=== PATIENT | female | born 1950 | race Caucasian/White ===

== ENCOUNTER 2016-09-26 11:26 | Emergency (ER) | payer BC, MEDICARE ==
[~2016-09-26] VITALS: Ht 162.6 cm; Wt 60.0 kg
--- NOTE | 2016-09-26 12:01 | PD ---
HPI Chief Complaint: GI Complaint Time Seen by Provider: 12:01 Travel History International Travel<30 days: No Contact w/Intl Traveler<30days: No Traveled to known affect area: No History of Present Illness HPI 66-year-old female with history of hypothyroidism, anxiety, presents to the emergency department for evaluation of 3 days of what she initially attributed to indigestion. Patient says that it doesn't matter what she is doing she gets this epigastric-like pain that fills up into her chest. She states that it is associated with a small short bout of nausea and subsides on its own. Patient states she has not changed her diet. She has no history of GERD or indigestion. Denies any recent illnesses, fever, or chills. She has had no diarrhea. No chest pain or tightness. No shortness of breath. Patient states that her father did have cardiac history. She has no other symptoms to report at this time. PFSH Past Medical History Thyroid Disease: Yes ?: Not Social History Alcohol Use: Yes (socially) Tobacco Use: Yes (socially) Substance Use: No Allergies-Medications (Allergen,Severity, Reaction): Coded Allergies: Aspirin (Verified Allergy, Unknown, 09/26/16) Codeine (Verified Allergy, Unknown, 09/26/16) Darvocet-N 100 (Verified Allergy, Unknown, 09/26/16) Darvon (Verified Allergy, Unknown, 09/26/16) Demerol (Verified Allergy, Unknown, 09/26/16) Iodine (Verified Allergy, Unknown, 09/26/16) Morphine (Verified Allergy, Unknown, 09/26/16) Niacin (Verified Allergy, Unknown, 09/26/16) Novocain (Verified Allergy, Unknown, 09/26/16) Prednisone (Verified Allergy, Unknown, 09/26/16) Shellfish (Verified Allergy, Unknown, 09/26/16) Valium (Verified Allergy, Unknown, 09/26/16) Uncoded Allergies: all aguila drugs (Allergy, Unknown, 09/26/16) emperon (Allergy, Unknown, 09/26/16) lidacaine (Allergy, Unknown, 09/26/16) Review of Systems Except as stated in HPI: all other systems reviewed are Neg Physical Exam Narrative GENERAL: Well-nourished female patient, ambulatory and in no acute distress SKIN: Warm and dry. HEAD: Atraumatic. Normocephalic. EYES: Pupils equal and round. No scleral icterus. No injection or drainage. ENT: No nasal bleeding or discharge. Mucous membranes pink and moist. NECK: Trachea midline. No JVD. CARDIOVASCULAR: Regular rate and rhythm. No murmur appreciated. RESPIRATORY: No accessory muscle use. Clear to auscultation. Breath sounds equal bilaterally. GASTROINTESTINAL: Abdomen soft, non-tender, nondistended. Hepatic and splenic margins not palpable. MUSCULOSKELETAL: No obvious deformities. No clubbing. No cyanosis. No edema. NEUROLOGICAL: Awake and alert. No obvious cranial nerve deficits. Motor grossly within normal limits. Normal speech. PSYCHIATRIC: Appropriate mood and affect; insight and judgment normal. Data Data Last Documented VS Vital Signs Date Time Temp Pulse Resp B/P Pulse Ox O2 Delivery O2 Flow Rate FiO2 09/26/16 12:12 98.2 58 16 112/69 96 Room Air Orders Electrocardiogram (09/26/16 11:51) Complete Blood Count With Diff (09/26/16 11:51) Basic Metabolic Panel (Bmp) (09/26/16 11:51) Ckmb (Isoenzyme) Profile (09/26/16 11:51) Troponin I (09/26/16 11:51) Ckmb (Isoenzyme) Profile (09/26/16 11:59) Magnesium (Mg) (09/26/16 11:59) Prothrombin Time / Inr (Pt) (09/26/16 11:59) Act Partial Throm Time (Ptt) (09/26/16 11:59) Troponin I (09/26/16 11:59) Lipase (09/26/16 11:59) Chest, Single Ap (09/26/16 11:59) Labs Laboratory Tests Test 09/26/16 12:20 White Blood Count 5.4 TH/MM3 Red Blood Count 3.99 MIL/MM3 Hemoglobin 12.0 GM/DL Hematocrit 35.7 % Mean Corpuscular Volume 89.4 FL Mean Corpuscular Hemoglobin 30.1 PG Mean Corpuscular Hemoglobin 33.7 % Concent Red Cell Distribution Width 12.4 % Platelet Count 255 TH/MM3 Mean Platelet Volume 7.3 FL Neutrophils (%) (Auto) 46.7 % Lymphocytes (%) (Auto) 37.3 % Monocytes (%) (Auto) 6.7 % Eosinophils (%) (Auto) 7.6 % Basophils (%) (Auto) 1.7 % Neutrophils # (Auto) 2.5 TH/MM3 Lymphocytes # (Auto) 2.0 TH/MM3 Monocytes # (Auto) 0.4 TH/MM3 Eosinophils # (Auto) 0.4 TH/MM3 Basophils # (Auto) 0.1 TH/MM3 CBC Comment DIFF FINAL Differential Comment Sodium Level 137 MEQ/L Potassium Level 3.9 MEQ/L Chloride Level 101 MEQ/L Carbon Dioxide Level 30.3 MEQ/L Anion Gap 6 MEQ/L Blood Urea Nitrogen 16 MG/DL Creatinine 0.75 MG/DL Estimat Glomerular Filtration 78 ML/MIN Rate Random Glucose 85 MG/DL Calcium Level 8.7 MG/DL Total Creatine Kinase 81 U/L Troponin I LESS THAN 0.02 NG/ML MDM Medical Decision Making Medical Screen Exam Complete: Yes Emergency Medical Condition: Yes Medical Record Reviewed: Yes Differential Diagnosis Indigestion versus gastritis versus pancreatitis versus ACS Narrative Course 66 year-old female presents to emergency department for evaluation. Patient appears overall well in triage. Workup is initiated. Once a medical bed becomes available, patient will be transferred and care assumed by that provider. Condition: Stable Janessa Majano Sep 26, 2016 12:01
[2016-09-26 12:12] VITALS: BP 112/69; PULSE 58; RESP 16; TEMP 98.2; O2SAT 96
[2016-09-26 12:33] LABS: AUTOMATED NEUTROPHIL # 2.5 TH/MM3 (1.8-7.7); BASOPHIL # 0.1 TH/MM3 (0-0.2); BASOPHIL % 1.7 % (0.0-2.0); EOSINOPHIL # 0.4 TH/MM3 (0-0.4); EOSINOPHIL % 7.6 % (0.0-4.0); HEMATOCRIT 35.7 % (35.0-46.0); HEMO FLAGS DIFF FINAL; LYMPH % 37.3 % (9.0-44.0); MEAN CELL VOLUME 89.4 FL (80.0-100.0); MEAN CORPUSCULAR HEMOGLOBIN 30.1 PG (27.0-34.0); MEAN CORPUSCULAR HGB CONC 33.7 % (32.0-36.0); MONO % 6.7 % (0.0-8.0); NEUT % 46.7 % (16.0-70.0); PLATELET COUNT 255 TH/MM3 (150-450); RED BLOOD COUNT 3.99 MIL/MM3 (4.00-5.30); RED CELL DISTRIBUTION WIDTH 12.4 % (11.6-17.2); WHITE BLOOD COUNT 5.4 TH/MM3 (4.0-11.0)
[2016-09-26 12:53] LABS: ANION GAP 6 MEQ/L (5-15); BICARBONATE 30.3 MEQ/L (21.0-32.0); BLOOD UREA NITROGEN 16 MG/DL (7-18); CHLORIDE 101 MEQ/L (98-107); GLOMERULAR FILTRATION RATE 78 ML/MIN (>89); POTASSIUM 3.9 MEQ/L (3.5-5.1); SODIUM (NA) 137 MEQ/L (136-145)
[2016-09-26 13:00] LABS: CREATINE KINASE 81 U/L (26-192)
--- NOTE | 2016-09-26 14:01 | RADRPT ---
EXAM DATE/TIME: 09/26/2016 12:29 [facility] COMPARISON: No previous studies available for comparison. INDICATIONS : Midsternal chest pains with pressure x4 days. MEDICAL HISTORY : None. SURGICAL HISTORY : None. ENCOUNTER: Initial ACUITY: 3 days PAIN SCORE: 7/10 LOCATION: Bilateral chest FINDINGS: A single view of the chest demonstrates the lungs to be symmetrically aerated without evidence of mas s, infiltrate or effusion. The cardiomediastinal contours are unremarkable. Osseous structures are intact. Scoliotic curvature. CONCLUSION: No acute disease. Eagle Perkins Jr., MD on September 26, 2016 at 13:59 Board Certified Radiologist. This report was verified electronically.
[2016-09-26] MEDS ORDERED: LEVO112T2 PO (15:41)
[2016-09-26] MEDS ORDERED: PRAV20TA2 PO (15:41)
[2016-09-26] MEDS ORDERED: CLON.5 PO (15:41)
[2016-09-26] MEDS ORDERED: PROZ20CA11 PO (15:41)
[2016-09-26] MEDS ORDERED: ERGO1CAP10 PO ×2 (15:42)
[2016-09-26 16:03] VITALS: BP 120/71; PULSE 68; RESP 18; O2SAT 96
[2016-09-26] MEDS ORDERED: BENA25TA3 PO (16:03)
[2016-09-26] MEDS ORDERED: DIPH1TAB36 PO (16:03)
[2016-09-26 16:21] LABS: INDIRECT BILIRUBIN 0.1 MG/DL (0.0-0.8); MAGNESIUM 1.9 MG/DL (1.5-2.5); TOTAL BILIRUBIN ADULT 0.2 MG/DL (0.2-1.0)
[2016-09-26] MEDS ORDERED: RANI150C PO (16:47)
--- NOTE | 2016-09-26 16:48 | PD ---
Data Data Last Documented VS Vital Signs Date Time Temp Pulse Resp B/P Pulse Ox O2 Delivery O2 Flow Rate FiO2 09/26/16 16:03 68 18 120/71 96 Room Air 09/26/16 12:12 98.2 Orders Electrocardiogram (09/26/16 11:51) Complete Blood Count With Diff (09/26/16 11:51) Basic Metabolic Panel (Bmp) (09/26/16 11:51) Ckmb (Isoenzyme) Profile (09/26/16 11:51) Troponin I (09/26/16 11:51) Magnesium (Mg) (09/26/16 11:59) Prothrombin Time / Inr (Pt) (09/26/16 11:59) Act Partial Throm Time (Ptt) (09/26/16 11:59) Lipase (09/26/16 11:59) Chest, Single Ap (09/26/16 11:59) Ed Poc Ultrasound (09/26/16 ) Hepatic Functional Panel (09/26/16 11:59) Labs Laboratory Tests Test 09/26/16 12:20 White Blood Count 5.4 TH/MM3 Red Blood Count 3.99 MIL/MM3 Hemoglobin 12.0 GM/DL Hematocrit 35.7 % Mean Corpuscular Volume 89.4 FL Mean Corpuscular Hemoglobin 30.1 PG Mean Corpuscular Hemoglobin 33.7 % Concent Red Cell Distribution Width 12.4 % Platelet Count 255 TH/MM3 Mean Platelet Volume 7.3 FL Neutrophils (%) (Auto) 46.7 % Lymphocytes (%) (Auto) 37.3 % Monocytes (%) (Auto) 6.7 % Eosinophils (%) (Auto) 7.6 % Basophils (%) (Auto) 1.7 % Neutrophils # (Auto) 2.5 TH/MM3 Lymphocytes # (Auto) 2.0 TH/MM3 Monocytes # (Auto) 0.4 TH/MM3 Eosinophils # (Auto) 0.4 TH/MM3 Basophils # (Auto) 0.1 TH/MM3 CBC Comment DIFF FINAL Differential Comment Sodium Level 137 MEQ/L Potassium Level 3.9 MEQ/L Chloride Level 101 MEQ/L Carbon Dioxide Level 30.3 MEQ/L Anion Gap 6 MEQ/L Blood Urea Nitrogen 16 MG/DL Creatinine 0.75 MG/DL Estimat Glomerular Filtration 78 ML/MIN Rate Random Glucose 85 MG/DL Calcium Level 8.7 MG/DL Magnesium Level 1.9 MG/DL Total Bilirubin 0.2 MG/DL Direct Bilirubin 0.1 MG/DL Indirect Bilirubin 0.1 MG/DL Aspartate Amino Transf 18 U/L (AST/SGOT) Alanine Aminotransferase 21 U/L (ALT/SGPT) Alkaline Phosphatase 40 U/L Total Creatine Kinase 81 U/L Troponin I LESS THAN 0.02 NG/ML Total Protein 6.7 GM/DL Albumin 3.6 GM/DL Lipase 116 U/L [facility] Supervised Visit with CURT: No Narrative Course Assumed care patient Janessa mayfield. 66-year-old woman presents with epigastric discomfort radiating into the back and up into the abdomen ongoing for about 3 days or so. Constant for the past 2 days. Worse with eating. Feels like indigestion. She is not really had trouble with indigestion or reflux in the past. There is no exertional nature to the symptoms. No shortness of breath. She is on-call occasionally, takes some kind of Tylenol PM or something like that to help her sleep but states it doesn't have any pain medicine than that, no other NSAIDs. She's tried over-the -counter medications but states that they help for 15 minutes or so but don't really make much of a difference. On exam, looks well, abdomen is soft, no tenderness. No rebound or guarding. Negative He's. Labs are unremarkable. Chest x-ray is unremarkable. EKG is unremarkable. Point of care ultrasound was done that shows a normal gallbladder. Symptoms seem consistent with GERD or peptic ulcer disease. She is not really had trouble with this in the past. I don't think that she's having an acute coronary syndrome. We spoke with the patient, would like to try a trial of ranitidine to see if this helps. She will follow-up with her primary physician. Chest agrees to return if she has any exertional symptoms, worsening symptoms, or any new symptoms like shortness of breath. Procedures Procedure Narrative Point of care ultrasound: Focus transabdominal ultrasounds performed by me at the bedside to evaluate the gallbladder. Gallbladder was normal appearance without gallstones, gallbladder wall thickening, or pericholecystic fluid. No tenderness over the gallbladder. Diagnosis Primary Impression: Epigastric pain Additional Instruction: Take ranitidine as prescribed. Follow up with her primary doctor in the next 3-5 days. Return to the emergency department for any worsening chest pain, any trouble breathing, or any other new or worsening symptoms. Med/Other Pt SpecificInfo: Prescription(s) given Scripts Ranitidine 150 Mg [id number] Mg PO BID #[id number] CAP Prov:Jordan Ibarra MD 09/26/16 Disposition: 01 DISCHARGE HOME Condition: Stable Jordan Ibarra MD Sep 26, 2016 16:48
[2016-09-26 17:00] LABS: APTT (PATIENT) 28.1 SEC (24.3-30.1)
--- NOTE | 2016-09-27 16:38 | EKG ---
Date Performed: 09/26/2016 Time Performed: 12:04:26 PTAGE: 66 years EKG: Sinus rhythm NORMAL ECG NO PREVIOUS TRACING DOCTOR: Britney Barajas Interpretating Date/Time 09/27/2016 16:34:54
== END 2016-09-26 17:26 | disposition home or self-care (01) ==
LOC: NEPA 11:26
DX: R10.13 Epigastric pain (principal); E03.9 Hypothyroidism, unspecified; E07.9 Disorder of thyroid, unspecified; R11.0 Nausea; Z72.0 Tobacco use
CPT/HCPCS: 71010; 80048; 80076; 82550; 83690; 83735; 84484; 85025; 85610; 85730; 93005